=== PATIENT | female | born 1990 | race Caucasian/White ===

== ENCOUNTER 2023-03-09 17:45 | Emergency (ER) | payer OTHER, SELFPAY ==
[2023-03-09 17:51] VITALS: BP 115/76; PULSE 67; RESP 16; TEMP 36.4; O2SAT 97; BMI 29.2
--- NOTE | 2023-03-09 18:01 | CRLHL7_ITS ---
For Patients: As a result of the Century Cures Act, medical imaging exams and procedure reports are released immediately into your electronic medical record. You may view this report before your referring provider. If you have questions, please contact your health care provider. INDICATION: Early , passing tissue. hx miscarriages x3. (sic) TECHNIQUE: Transabdominal and endovaginal pelvic ultrasound were performed. COMPARISON: None. FINDINGS: There is a single intrauterine gestation. The embryo demonstrates a cardiac rate measuring 167 beats per minute. The embryo`s crown rump length measurement of 1.6 cm corresponds to a gestational age of 8 weeks 0 days with a sonographic due date of 10/19/2023. There is a normal appearing yolk sac. There are no gross abnormalities noted within the embryo at this early state of development. The placenta has not yet developed. There is no sign of perigestational hemorrhage. Right ovarian thick-walled corpus luteum cyst measuring 1.7 cm. There are no suspicious fluid collections noted in the cul-de-sac. IMPRESSION: Single viable intrauterine with size and dates as above. Dictated by Torito Lozano MD @ 03/09/2023 7:27:59 PM (Electronically Signed)
--- NOTE | 2023-03-09 18:05 | ED.PREGNANCY ---
HPI - General Date Seen: 03/09/23 Chief complaint: OB/Uterine Contractions Stated complaint: possible miscarriage Time Seen by Provider: 03/09/23 17:47 Source: patient Mode of arrival: ambulatory Limitations: no limitations History of Present Illness HPI Narrative: Patient is a 32-year-old female who is A3 presenting to emergency department for possible miscarriage. She states she has was 7 weeks has not had ultrasound yet but states she noticed 2 episodes of brown discharge from her vagina and tissue like appearance of the discharge. 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 Denies fevers, chills, abdominal pain, lightheadedness, dizziness, chest pain, shortness of breath. She states the amount of discharge was relatively minimal. Related Data Home Medications Medication Instructions Recorded Confirmed 03/09/23 Prometrium 03/09/23 Zoloft 03/09/23 aspirin 81 mg tablet,delayed 81 mg PO DAILY 03/09/23 03/09/23 release (Adult Aspirin Regimen) Allergies Allergy/AdvReac Type Severity Reaction Status Date / Time Penicillins Allergy Mild Verified 03/09/23 17:55 Review of Systems Status of ROS: Reports: 10 or more systems reviewed and unremarkable except as noted in History and below PFSH PFS Social History Smoking Status: Never smoker Do you use any of these nicotine containing products: None How often do you have a drink containing alcohol: never How often do you have six or more drinks on one occasion: Never AUDIT-C Alcohol total score: 0 Non-prescribed substance use: denies use Exam Narrative: Exam Narrative: Const: Well-nourished, Well-developed, in no distress Eyes: PERRL, no conjunctival injection, and symmetrical lids HENT: Atraumatic external nose and ears. Moist mucous membranes. Neck: Symmetric, trachea midline, No thyromegaly. CVS: RRR, No murmurs or gallops. Peripheral pulses 2+ and equal in all extremities RESP: Unlabored respiratory effort. Clear to auscultation bilaterally. GI: Nontender/Nondistended, No rebound or guarding. MSK:Extremities w/o deformity, Normal Active ROM Skin: Warm, Dry. No rashes or lesions. Neuro: Normal Muscle tone, No focal neurological deficits. Psych: Awake, Alert, & Oriented x3. Appropriate mood and affect. Const: Vital Signs, click to edit/add: Vital Signs - 24 hr 03/09/23 17:51 Temperature 97.5 F L Pulse Rate [Pulse Oximeter] 67 Respiratory Rate 16 Blood Pressure [Ri ght Upper Arm] 115/76 Pulse Oximetry 97 Oxygen Delivery Me thod Room Air Course Vital Signs Vital signs: Initial Vital Signs Temperature 97.5 F L 03/09/23 17:51 Temperature Source Temporal Artery Scan 03/09/23 17:51 Pulse Rate 67 03/09/23 17:51 Respiratory Rate 16 03/09/23 17:51 Blood Pressure 115/76 03/09/23 17:51 Blood Pressure Mean 89 03/09/23 17:51 Blood Pressure Position Sitting 03/09/23 17:51 Pulse Oximetry 97 03/09/23 17:51 Oxygen Delivery Method Room Air 03/09/23 17:51 Vital Signs Temperature 97.5 F L 03/09/23 17:51 Pulse Rate 67 03/09/23 17:51 Respiratory Rate 16 03/09/23 17:51 Blood Pressure 115/76 03/09/23 17:51 Pulse Oximetry 97 03/09/23 17:51 Oxygen Delivery Method Room Air 03/09/23 17:51 Temperature 97.5 F L 03/09/23 17:51 Pulse Rate 67 03/09/23 17:51 Respiratory Rate 16 03/09/23 17:51 Blood Pressure 115/76 03/09/23 17:51 Pulse Oximetry 97 03/09/23 17:51 Oxygen Delivery Method Room Air 03/09/23 17:51 MDM - OB/Uterine Contractions MDM Narrative Medical decision making narrative: Patient is a 32-year-old female presenting for a possible miscarriage. She is otherwise doing well no a symptoms we will check a HCG quantitative. Since there was some possible bleeding or tissue passage we will do an ultrasound to better evaluate this. The ultrasound returned showing a normal intrauterine at about 8 weeks. Quantitative hCG is still pending at this time but she is otherwise doing well his she is not having an ectopic . She can be discharged home informed to follow-up with her OB Gyne. She is agreeable to this plan. Imaging Data OB ultrasound: Radiologist's impression: Single viable intrauterine with size and dates as above. Dictated by Torito Lozano MD @ 03/09/2023 7:27:59 PM Discharge Plan Discharge Clinical Impression: Threatened miscarriage Patient Disposition: Home, Self-Care Condition: Stable Instructions: Threatened Miscarriage (ED) Additional Instructions: Follow up with your OB tomorrow . Return to the emergency department for new or worsening symptoms. Prescriptions: No Action aspirin [Adult Aspirin Regimen] 81 mg tablet,delayed release (DR/EC) 81 mg PO DAILY Prometrium Zoloft Follow Up/Referrals: Provider,Not a Local [Primary Care Provider] - Stand Alone Forms: [employer] Info Instructions
== END 2023-03-09 19:42 | disposition home or self-care (01) ==
PROVIDERS: Emergency Provider Student in an Organized Health Care Education/Training Program
DX: O20.0 Threatened abortion (principal); Z3A.08 8 weeks gestation of pregnancy
CPT/HCPCS: 36415; 76817; 84702; 99282; 99283